=== PATIENT | female | born 1960 | race Caucasian/White ===

== ENCOUNTER → 2018-06-20 | Outpatient (CLI) | payer BC ==
--- NOTE | 2018-06-21 04:09 | CONS ---
CONSULTATION REASON FOR CONSULTATION: Sleep apnea. This is a 58-year-old female patient who was diagnosed to have obstructive sleep apnea; the diagnosis was established 6 or 7 years ago through [facility]. The patient has a CPAP unit which is set at a pressure of 10 cm of water. She is using a Simplus full-face mask. On today's evaluation she is coming in to establish herself today in our office. I checked the compliance data. The patient has been averaging around 5.4 hours of CPAP use per night. Her CPAP use is exceeding 95%. At times she feels congested because of her CPAP unit; she has an older generation ResMed S9 series. No recent weight gain. She goes to bed around 11 p.m., wakes up at 5 in the morning. No snoring while on the CPAP unit. No significant leaks around the mask. No restlessness in the lower extremities. No sleepwalking or sleeptalking. No significant hypersomnia or sleepiness. Palestine score is 11 for now. She does not take any naps during the day. She sleeps on her side. She drinks coffee in moderate amounts. She has lost weight significantly. She used to weight 247 pounds more than 10 years ago, and currently she is down to 193. PAST MEDICAL HISTORY: 1. Obstructive sleep apnea. Currently on CPAP; details discussed above. 2. Diabetes mellitus. 3. History of breast cancer with previous lumpectomy and currently on tamoxifen. 4. Hyperlipidemia. 5. Hypothyroidism. 6. History of tachycardia, sinus. DRUG ALLERGIES: PENICILLIN. OUTPATIENT MEDICATIONS: Outpatient medications include: 1. Singulair 10 mg p.o. daily. 2. Metformin 500 mg twice a day. 3. Actos 30 mg p.o. daily. 4. Tamoxifen 20 mg p.o. daily. 5. Lipitor 10 mg p.o. daily. 6. Cardizem 120 mg p.o. daily. 7. Synthroid 50 mcg p.o. daily. SURGICAL HISTORY: 1. Mastectomy on the right breast. 2. Cholecystectomy. 3. Insertion and removal of a port for chemotherapy. 4. Tubal ligation. SOCIAL HISTORY: Ex-smoker. Quit smoking in 2001. No history of alcoholism. No history of IV drugs. FAMILY HISTORY: Negative for sleep apnea or any other form of sleep breathing disorder. REVIEW OF SYSTEMS: Fourteen-point review of systems was done. Positive findings were all mentioned above in the history of present illness. PHYSICAL EXAMINATION: BP is 121/71, pulse 56, respirations 16, temperature 98.4, saturation 92% on room air. Height is 5 feet 5 inches, weight 193, BMI 31.6. Palestine score 11. Neck size 14-2/3 inches. GENERAL APPEARANCE: Calm, comfortable. Head is atraumatic, normocephalic. NECK: Supple. No JVD. No goiter or neck masses. Mallampati class IV. LUNGS: Clear to auscultation. HEART: Heart sounds are regular rate and rhythm. Normal S1, S2. No S3, S4. No murmurs. ABDOMEN: Soft, nontender. No organomegaly. EXTREMITIES: No edema. No cyanosis or clubbing. Neurologically she is alert and oriented x3. No focal neurological deficit. PSYCHIATRIC: Negative for anxiety or depression. Skin is negative for any wounds or ulceration. IMPRESSION: 1. Symptomatic obstructive sleep apnea, currently on CPAP with a pressure of 10. 2. Obesity with interval weight loss. Current BMI is down to 31.6. 3. History of breast cancer. 4. Diabetes mellitus, type 2. 5. Hypothyroidism. PLAN: I checked the patient's CPAP unit. She has a functional ResMed S9 series. I dropped the humidity down to 2. I offered her heated tubing. We also had a lengthy discussion about her mask interface. I think she would be better off with a different mask, and I offered her a DreamWear [id number] full-face mask, small size. The patient will be getting back to me and decide if this is the type of mask that she would like to use in the future. Alternatively she can use her Simplus mask. Dropped down the RAMP time on her CPAP unit to 10 cm. She is compliant. She is benefitting from treatment. No need for any further adjustments. See me back in a year's time, earlier if needed. MMODL / IJN: [id number] /
== END | disposition home or self-care (01) ==
LOC: SLEEP 14:32
PROVIDERS: ATTEND Internal Medicine Critical Care Medicine
DX: G47.33 Obstructive sleep apnea (adult) (pediatric) (principal); E66.9 Obesity, unspecified; E11.9 Type 2 diabetes mellitus without complications; E03.9 Hypothyroidism, unspecified; E78.5 Hyperlipidemia, unspecified; Z99.89 Dependence on other enabling machines and devices; Z79.899 Other long term (current) drug therapy; Z88.0 Allergy status to penicillin; Z90.11 Acquired absence of right breast and nipple; Z90.49 Acquired absence of other specified parts of digestive tract; Z79.84 Long term (current) use of oral hypoglycemic drugs; Z98.51 Tubal ligation status; Z85.3 Personal history of malignant neoplasm of breast; Z87.891 Personal history of nicotine dependence; Z68.31 Body mass index [BMI] 31.0-31.9, adult
CPT/HCPCS: 99211

== ENCOUNTER → 2019-09-24 | Outpatient (CLI) | payer BC ==
--- NOTE | 2019-09-24 19:51 | US ---
EXAMINATION TYPE: US thyroid st tissue head/neck DATE OF EXAM: 09/24/2019 COMPARISON: NONE CLINICAL HISTORY: 59-year-old female E03.9 hypothyroidism. Difficulty swallowing, has had 2 episodes of chicken stuck in throat. Been on Synthroid for 10+ yrs TECHNIQUE: Multiple sonographic images of the thyroid gland are obtained. FINDINGS: GLAND SIZE: Right Lobe: 2.5 x 1.0 x 1.1cm Overall Parenchyma: heterogenous Left Lobe: 4.6 x 1.2 x 1.7 cm Overall Parenchyma: heterogeneous Isthmus Thickness: 0.2 cm NODULES RIGHT: # of nodules measured on right: 0 LEFT: # of nodules measured on left: 0 ISTHMUS: # of nodules measured in the isthmus: 0 Bilateral neck scanned, no evidence of lymphadenopathy. Patient has superficial lump under left mandible where a 0.7 x 0.6 x 0.5cm round cystic structure jus t below the skin layer. IMPRESSION: 1. Heterogeneous parenchyma may relate to chronic hyperthyroidism. No discrete nodule. 2. Targeted scanning under the left mandible at the patient's palpable site shows a 7 mm cyst just de ep to the skin, probable sebaceous cyst or epidermal inclusion cyst. Clinical follow-up recommended. If symptomatic, consider surgical excision.
== END | disposition home or self-care (01) ==
LOC: RADUSWWP 08:48
PROVIDERS: ATTEND Family Medicine
DX: E04.1 Nontoxic single thyroid nodule (principal)
CPT/HCPCS: 76536

== ENCOUNTER 2019-10-03 06:55 | Day surgery (SDC) | payer BC ==
[2019-10-01 15:16] VITALS: BMI 32.3
[~2019-10-03 06:55] MED LIST: LACTATED RINGERS 1,000 ML IV SCH; LIDOCAINE 1% (10MG/ML) FOR IV START INTRADERMA PRN
[2019-10-03 07:17] VITALS: TEMP 98
[2019-10-03] MEDS ORDERED: LIDOCAINE 1% (10MG/ML) FOR IV START SQ ONE (07:28)
[2019-10-03 07:29] LABS: Glucose,Whole Blood 176 mg/dL (75-99)
[2019-10-03] MEDS ORDERED: PROPOFOL 10 MG/ML 20 ML VIAL IV ONE (07:30)
[2019-10-03] MEDS ORDERED: LIDOCAINE 1% INJ 10MG/ML (20 ML MDV) ONE (07:30)
--- NOTE | 2019-10-03 07:51 | P.PCN ---
Date of Procedure: 10/03/19 Procedure(s) Performed: BRIEF HISTORY: Patient is a 59-year-old, pleasant, white female scheduled for an upper endoscopy as a part of evaluation of intermittent dysphagia to solids for the last several weeks duration. He is referred infection that happened twice in the last 1 month Of chicken that was lodged and subsequently went to the emergency room and it spontaneously resolved. She is hence scheduled for an upper endoscopy as a possible dilation today.. PROCEDURE PERFORMED: Esophagogastroduodenoscopy with biopsy and dilation. PREOPERATIVE DIAGNOSIS: Intermittent dysphagia to some the last 6 weeks duration with 2 episodes of food impaction. IV sedation per anesthesia. PROCEDURE: After informed consent was obtained, the patient was brought into the endoscopy unit. IV sedation was administered by Anesthesia under continuous monitoring. Initially the Olympus GIF-140 video endoscope was inserted into the mouth. Esophagus intubated without any difficulty. It was gradually advanced into the stomach and duodenum and carefully examined. The bulb and the second part of the duodenum appeared normal. The scope at this time was withdrawn to the stomach, adequately insufflated with air, and upon careful examination, mucosa of the antrum, body, cardia and the fundus appeared normal. The scope was then withdrawn into the esophagus. Small sliding type hiatal hernia noted. There was a widely patent distal esophageal Schatzki's ring identified proximal to the GE junction which was dilated using 15-18 mm TTS balloon in a sequential fashion for 90 seconds. The GE junction was located at 39 cm from the incisors. The mucosa of the distal esophagus had thickened esophageal folds with longitudinal ridges, furrows and the patient mucosal rings SUSPICIOUS for eosinophilic esophagitis and multiple biopsies were done from this area. The rest of esophagus appeared normal and the patient tolerated the procedure well. IMPRESSION: 1.. Distal Esophageal Schatzki's ring status post balloon dilation using 15-18 mm TTS balloon as described above. 2. Thickened distal esophageal folds with mucosal rings, longitudinal ridges and follows suspicious for eosinophilic esophagitis is post multiple biopsies. RECOMMENDATIONS: The findings of this examination were discussed with the patient as well as her family. She was advised to follow with the biopsy results. She'll remain on a clear liquid diet for lunch today. She will be seen in office in 2 weeks..
[2019-10-03 08:15] VITALS: BP 104/62; PULSE 66; RESP 18
== END 2019-10-03 08:40 | disposition home or self-care (01) ==
LOC: ORWHC2ENDO 06:55
PROVIDERS: ATTEND Internal Medicine Gastroenterology
DX: K22.2 Esophageal obstruction (principal); K20.9 Esophagitis, unspecified; K44.9 Diaphragmatic hernia without obstruction or gangrene; E78.5 Hyperlipidemia, unspecified; J45.909 Unspecified asthma, uncomplicated; G47.33 Obstructive sleep apnea (adult) (pediatric); E11.9 Type 2 diabetes mellitus without complications; E07.9 Disorder of thyroid, unspecified; Z79.890 Hormone replacement therapy; Z79.84 Long term (current) use of oral hypoglycemic drugs; Z79.899 Other long term (current) drug therapy; Z90.10 Acquired absence of unspecified breast and nipple; Z85.3 Personal history of malignant neoplasm of breast; Z92.21 Personal history of antineoplastic chemotherapy; Z92.3 Personal history of irradiation; Z98.890 Other specified postprocedural states; Z98.51 Tubal ligation status; Z88.0 Allergy status to penicillin; Z99.89 Dependence on other enabling machines and devices
CPT/HCPCS: 88305; 88312; 43239; 43249; J2001; J2704; C1726

== ENCOUNTER → 2020-10-06 | Outpatient (CLI) | payer BC ==
--- NOTE | 2020-10-06 16:01 | XR ---
EXAMINATION TYPE: XR chest 2V DATE OF EXAM: 10/06/2020 COMPARISON: NONE HISTORY: Wheezing, asthma TECHNIQUE: Frontal and lateral views of the chest are obtained. FINDINGS: Prominence of the pulmonary artery could be indicative of pulmonary artery hypertension. Chapman rgical clips are present in the right axilla. Suspect right mastectomy change. Abnormal density seen along the region of the right middle lobe. There is volume loss in the right hemithorax. There is no pleural effusion or pneumothorax seen. The cardiac silhouette size is within normal limits. Bronchi al wall thickening is present. The osseous structures are intact. IMPRESSION: Correlate for right middle lobe pneumonia, follow-up to resolution to exclude an underly ing mass a consider chest CT as indicated. Postop changes.
== END | disposition home or self-care (01) ==
LOC: RADXRYALE 14:45
PROVIDERS: ATTEND Physician Assistant Medical
DX: R06.2 Wheezing (principal)
CPT/HCPCS: 71046

== ENCOUNTER → 2020-10-10 | Outpatient (CLI) | payer BC ==
[2020-10-10 14:08] LABS: African American GFR (CKD) >90 (>60 ml/min/1.73 sqM); Blood Urea Nitrogen 14 mg/dL (7-17); Non-African American GFR(CKD) 87 (>60 ml/min/1.73 sqM)
--- NOTE | 2020-10-10 15:34 | CT ---
EXAMINATION TYPE: CT chest w con DATE OF EXAM: 10/10/2020 COMPARISON: Chest x-ray 10/06/2020 HISTORY: Abnormal chest x-ray CT DLP: 461 mGycm Automated exposure control for dose reduction was used. CONTRAST: CT scan of the chest is performed with IV Contrast, patient injected with 100 mL of Isovue 300. FINDINGS: LUNGS: There is right hilar mass measuring 4.9 x 2.7 x 3.7 cm. There is narrowing of the right middle lobe bronchus with resultant postobstructive volume loss in pneumonia. There is a pulmonary nodule r ight infrahilar region measuring 1.4 cm. No additional nodules or masses are identified. MEDIASTINUM: There is conglomerate mass within the subcarinal region extending into the azygos esopha geal region measuring approximately 5.7 x 4.1 cm. There is paratracheal adenopathy on the left measur ing 1.5 cm and on the right measuring approximately 1.8 cm. High right paratracheal adenopathy measur es 1.1 cm. Thoracic aorta is of normal caliber. The heart is not enlarged. UPPER ABDOMEN: No significant abnormality appreciated. OTHER: No additional significant abnormality is seen. IMPRESSION: 1. Right hilar mass as discussed above with post obstructive volume loss and pneumonia. Mediastinal a denopathy. Correlate with PET/CT and/or bronchoscopy. The findings are felt to reflect malignancy unt il proven otherwise.
== END | disposition home or self-care (01) ==
LOC: RADCTMAIN 13:23
PROVIDERS: ATTEND Family Medicine
DX: J18.9 Pneumonia, unspecified organism (principal); R91.8 Other nonspecific abnormal finding of lung field; R59.0 Localized enlarged lymph nodes
CPT/HCPCS: 82565; 84520; 71260; 36415; Q9967

== ENCOUNTER → 2020-10-17 | Outpatient (CLI) | payer BC ==
--- NOTE | 2020-10-17 15:13 | XR ---
EXAMINATION TYPE: XR chest 2V DATE OF EXAM: 10/17/2020 COMPARISON: 10/06/2020 TECHNIQUE: PA and lateral views submitted. HISTORY: Breast cancer with wheezing FINDINGS: I for inflation lungs with a suggestion of volume loss on the right. Surgical clips overlying the rig ht chest. Heart size stable. Underlying COPD suspected. Apical pleural thickening with no overt failu re. Stable subsegmental changes involving the right lung unchanged from prior exam. There is persiste nt right hilar soft tissue prominence. Hypertrophic and degenerative changes of the spine. Surgical c lips in the upper abdomen noted. IMPRESSION: 1. Right hilar soft tissue fullness correlate for mass with adenopathy. Postobstructive atelectasis v ersus developing pneumonia right middle lobe..
== END | disposition home or self-care (01) ==
LOC: RADXRYALE 14:56
PROVIDERS: ATTEND Physician Assistant Medical
DX: C50.919 Malignant neoplasm of unspecified site of unspecified female breast (principal); R06.2 Wheezing
CPT/HCPCS: 71046

== ENCOUNTER 2020-10-22 10:36 | Day surgery (SDC) | payer BC ==
[2020-10-21 13:06] VITALS: BMI 29.3
[~2020-10-22 10:36] MED LIST changes: +ALBUTEROL NEB (CONC) 2.5 MG/0.5 ML INHALATION ONE; -LIDOCAINE 1% (10MG/ML) FOR IV START INTRADERMA PRN; +LIDOCAINE 2% (PF) 20 MG/ML 5 ML VIAL INHALATION ONE; +LIDOCAINE VISCOUS 300 MG/15 ML CUP MUCOUS MEM ONE
[2020-10-22] MEDS ORDERED: LIDOCAINE 1% (10MG/ML) FOR IV START INTRADERMA ONE (11:27)
[2020-10-22 11:39] LABS: Glucose,Whole Blood 117 mg/dL (75-99)
[2020-10-22] MEDS ORDERED: SUCCINYLCHOLINE CHLORIDE 100 MG/5 ML SYR IV ONE (11:56)
[2020-10-22] MEDS ORDERED: fentaNYL (PF) 50 MCG/ML 2 ML AMP ONE (11:56)
[2020-10-22] MEDS ORDERED: ROCURONIUM 10 MG/ML (5 ML VIAL) IV ONE (11:56)
[2020-10-22] MEDS ORDERED: PROPOFOL 10 MG/ML 20 ML VIAL IV ONE ×2 (11:56)
[2020-10-22] MEDS ORDERED: ONDANSETRON 4 MG/2 ML VIAL ONE (11:56)
[2020-10-22] MEDS ORDERED: NEOSTIGMINE 1 MG/ML 10 ML VIAL ONE (11:56)
[2020-10-22] MEDS ORDERED: LIDOCAINE 1% INJ 10MG/ML (20 ML MDV) ONE (11:56)
[2020-10-22] MEDS ORDERED: GLYCOPYRROLATE 0.2 MG/ML 2 ML VIAL ONE (11:56)
[2020-10-22 13:43] VITALS: TEMP 97.1
[2020-10-22 13:51] LABS: Glucose,Whole Blood 110 mg/dL (75-99)
[2020-10-22 14:14] VITALS: RESP 18
[2020-10-22 14:32] VITALS: BP 102/51; PULSE 49
--- NOTE | 2020-10-22 14:38 | XR ---
EXAMINATION TYPE: XR chest 1V portable DATE OF EXAM: 10/22/2020 COMPARISON: 10/17/2020 HISTORY: Post right middle lobe biopsies TECHNIQUE: Single frontal view of the chest is obtained. FINDINGS: There is a 2.8 cm right hilar mass. Right apical pleural thickening. Right-sided consolida tion with small effusion. Surgical clips in the axilla. Heart size normal. Coarsened interstitium. Ar thropathy of the shoulders. Hyperinflation suggests COPD. IMPRESSION: 1. No sizable pneumothorax. Right-sided consolidation and small pleural effusion. Right hilar mass ag ain noted measuring approximately 2.8 cm. 2. Interstitial increased markings can be associated with chronic interstitial lung disease or pneumo nitis. Correlate clinically.
--- NOTE | 2020-10-22 17:14 | P.PCN ---
Date of Procedure: 10/22/20 Operative Findings: Preoperative Diagnosis: Right hilar mass, mediastinal lymphadenopathy Postoperative Diagnosis: Right hilar mass, mediastinal lymphadenopathy Significant narrowing of the right middle lobe bronchus with extrinsic compression an endobronchial tumor resulting into RML atelectasis. Procedure(s) Performed: 1 Navigational bronchoscopy 2 transbronchial biopsy of the RML endobronchial mass 3 transbronchial brushing of the RML endobronchial mass 4 bronchial lavage of the right middle lobe 6 EBUS guided transbronchial needle aspirate of the station 7 subcarinal and 4R lymph node . Anesthesia: ROSALINOA Surgeon: Rut Chavis [employer] Draftsman #1:Luz Elena Laboy Estimated Blood Loss (ml): 0 Pathology: other Condition: stable Disposition: same day Operative Findings: Indication: Right middle lobe mass This procedure was done under general anesthesia. The patient was brought into the endoscopy suite. The patient was intubated by OPTICAL INSTRUMENT REPAIRER. The patient had a 8 ET tube placed and she was secured in place. Following that, flexible bronchoscope was introduced through the orotracheal tube and an airway inspection was done. The visualized airways included the mid and the distal trachea, bilateral mainstem bronchi, right upper lobe bronchus, bronchus intermedius, right middle lobe and right lower lobe bronchus and the various 10 segments on the right. There was significant abnormalities noted that the orifice of the right liver lobe. Right hilar mass was invading the right middle lobe bronchus causing significant narrowing that the orifice with endobronchial irregularities and a verifiable irregular tumor- Bro appearing surface circumferentially narrowing the right middle lobe bronchus. I was able to pursue bronchoscope through the right middle lobe bronchus into the lateral and medial segment. The bronchoscope was moved to the left and the visualized airways included the left mainstem bronchus, left upper lobe bronchus and left lower lobe bronchus and the various 8 segments on the left. There was evidence of endobronchial irregularities with essentially noted in the right middle lobe bronchus. The bronchoscope was then taken to the right middle lobe and under direct visualization, endobronchial and transbronchial biopsies of the middle lobe mucosal irregularities was biopsied . Following that, endobronchial tumors of the right middle lobe bronchus was done. Following that, a bronchiolitis right middle lobe was done with a total of 80 mL of fluid was infused and 25 mL of aspirate was obtained. Aspirate was bloody. Therapeutic airway suctioning was done. Bronchoscope was removed. Subsequent to that, the endobronchial ultrasound bronchoscopy was introduced.The EBUS was used and the lymph nodes were examined. Direct measurement of the mediastinal lymph nodes revealed at the level of 4R and station 7 lymph nodes. The rest of the stations were all examined and no visible lymph nodes were identified. As such no further measurements were done. I performed transbronchial needle aspirate of station 7 and a total of 5 passes were taken. I also performed transbronchial needle aspirate of the station 4R lymph node, total of 3 passes were taken. I used a 22-gauge VIZISHOT needles.. No major bleeding and the scope was removed and taken out . Patient was extubated and transferred to recovery in stable condition. Chest x-rays to follow to rule out any complications or pneumothorax.
== END 2020-10-22 15:11 | disposition home or self-care (01) ==
LOC: ORWHC2ENDO 10:36
PROVIDERS: ATTEND Internal Medicine Critical Care Medicine
DX: C34.01 Malignant neoplasm of right main bronchus (principal); J44.9 Chronic obstructive pulmonary disease, unspecified; G47.33 Obstructive sleep apnea (adult) (pediatric); Z79.899 Other long term (current) drug therapy; C50.919 Malignant neoplasm of unspecified site of unspecified female breast; E78.2 Mixed hyperlipidemia; E03.9 Hypothyroidism, unspecified; E11.9 Type 2 diabetes mellitus without complications; J30.9 Allergic rhinitis, unspecified; I10 Essential (primary) hypertension; E61.1 Iron deficiency; Z88.0 Allergy status to penicillin; Z79.84 Long term (current) use of oral hypoglycemic drugs; Z87.891 Personal history of nicotine dependence
CPT/HCPCS: 87798 ×3; 87496; 87498; 87529; 88104; 88108; 88305; 88173; 88342; 87252; 87502; 87634; 88341; 87070; 87205; 87075; 87116; 87102; 87206; 71045; 31625; 31623; 31624; 31652; J2710; J2405; J2001; J3010; J0330; J2704

== ENCOUNTER → 2021-02-05 | Outpatient (CLI) | payer BC ==
--- NOTE | 2021-02-05 12:50 | CT ---
EXAMINATION TYPE: CT abdomen pelvis wo/w con DATE OF EXAM: 02/05/2021 COMPARISON: None HISTORY: Adnexal mass CT DLP: 2270 mGycm CONTRAST: CT scan of the abdomen and pelvis is performed with Oral Contrast and without and with IV Contrast, p atient injected with 100 ml mL of Isovue 300. FINDINGS: LUNG BASES-: Atelectasis or infiltrate right lower lobe. Nodular component within the periphery of th e area of abnormal attenuation. CT of the chest is recommended. Adjacent to the esophagus there is 3. 3 cm septated mass which may reflect adenopathy. LIVER/GB: Cholecystectomy clips are in place. No space occupying hepatic lesion. Biliary tree is o f normal caliber. PANCREAS: No inflammation. No distinct mass. SPLEEN: No splenic enlargement. No lesion seen. ADRENALS: Nonspecific nodular thickening left adrenal gland measures 1.6 cm. KIDNEYS/BLADDER: No hydronephrosis. No nephrolithiasis. No distinct renal mass. Urinary bladder g rossly unremarkable. BOWEL: Normal appendix. Normal bowel caliber. No inflammation. GENITAL ORGANS: Lobulated predominantly solid and partially cystic mass left ovary measures 6.9 x 5. 1 cm. Neoplasm is suspected. The right ovary and uterus appear unremarkable. LYMPH NODES: No greater than 1cm abdominal or pelvic lymph nodes are appreciated. AORTA: No significant abnormality. OSSEOUS STRUCTURES: No significant abnormality is seen. OTHER: No significant additional abnormality is seen. IMPRESSION: 1. Lobulated predominantly solid and partially cystic mass left ovary measures 6.9 x 5.1 cm. Neoplasm is suspected. 2. Infiltrate or atelectasis with peripheral nodularity. CT of the chest is recommended to exclude ne oplasm.
== END | disposition home or self-care (01) ==
LOC: RADCTMAIN 09:29
PROVIDERS: ATTEND Obstetrics & Gynecology
DX: N83.8 Other noninflammatory disorders of ovary, fallopian tube and broad ligament (principal)
CPT/HCPCS: 74178; Q9967

== ENCOUNTER → 2021-02-09 | Outpatient (CLI) | payer BC | END | disposition home or self-care (01) | LOC: LABWHC1 12:13 | PROVIDERS: ATTEND Obstetrics & Gynecology | DX: Z01.818 Encounter for other preprocedural examination (principal); Z20.822 Contact with and (suspected) exposure to COVID-19 | CPT/HCPCS: U0003; U0005 ==

== ENCOUNTER → 2021-02-16 | Outpatient (CLI) | payer BC | END | disposition home or self-care (01) | LOC: LABWHC1 15:37 | PROVIDERS: ATTEND Obstetrics & Gynecology | DX: Z01.812 Encounter for preprocedural laboratory examination (principal); Z20.822 Contact with and (suspected) exposure to COVID-19 | CPT/HCPCS: U0003; C9803 ==

== ENCOUNTER → 2021-04-07 | Outpatient (CLI) | payer BC ==
--- NOTE | 2021-04-16 10:45 | HM ---
HOLTER MONITOR REPORT The patient basically reported activities and had 1 episode of shortness of breath. Predominant rhythm appears to be sinus with a heart rate ranging from 64 to 140 beats per minute with average heart rate of 85 beats per minute. Sinus rhythm and sinus tachycardia were noted. When the patient complained of shortness of breath going up stairs she was in a sinus rhythm with isolated PACs, rate of about 120 beats per minute. Overall no Tra arrhythmias were noted. FINAL IMPRESSION: No significant symptoms reported except 1 episode of shortness of breath. Predominant rhythm appears to be sinus and sinus tachycardia. Rare isolated PACs and PVCs were noted. At the time patient had shortness of breath, she was in a sinus tachycardia at 120 beats per minute. MMODL / IJN: [id number] /
== END | disposition home or self-care (01) ==
LOC: RADECHMAIN 11:32
PROVIDERS: ATTEND Family Medicine
DX: I49.3 Ventricular premature depolarization (principal); I49.1 Atrial premature depolarization
CPT/HCPCS: 93225; 93226

== ENCOUNTER 2021-04-29 06:16 | Day surgery (SDC) | payer BC ==
[2021-04-24 17:16] VITALS: BMI 33.1
[~2021-04-29 06:16] MED LIST changes: -ALBUTEROL NEB (CONC) 2.5 MG/0.5 ML INHALATION ONE; +LIDOCAINE 1% (10MG/ML) FOR IV START INTRADERMA PRN; -LIDOCAINE 2% (PF) 20 MG/ML 5 ML VIAL INHALATION ONE; -LIDOCAINE VISCOUS 300 MG/15 ML CUP MUCOUS MEM ONE
[2021-04-29] MEDS ORDERED: LACTATED RINGERS 1,000 ML IV ONE (06:50)
[2021-04-29] MEDS: LACTATED RINGERS 1,000 ML IV ONE ×2 (06:50→07:30)
[2021-04-29 06:54] VITALS: TEMP 97.4
[2021-04-29 06:59] LABS: Glucose,Whole Blood 159 mg/dL (75-99)
[2021-04-29] MEDS ORDERED: PROPOFOL 10 MG/ML 20 ML VIAL IV ONE (07:06)
--- NOTE | 2021-04-29 07:27 | P.PCN ---
Date of Procedure: 04/29/21 Procedure(s) Performed: Brief history: Patient is a pleasant 61-year-old white female scheduled for an elective upper endoscopy as well as colonoscopy as a part of evaluation of GERD/iron deficiency anemia and strong family history of colon cancer. Procedure performed: Esophagogastroduodenoscopy with biopsy Colonoscopy Preoperative diagnosis: GERD/iton deficiency anemia Family history of colon cancer Anesthesia: MAC Procedure: After informed consent was obtained from the patient was brought into the endoscopy unit and IV sedation was administered by anesthesia under continuous monitoring. Initially upper endoscopy was done. The Olympus GF 160 video endoscope was inserted inserted into the mouth and esophagus intubated without any difficulty and was gradually advanced into the stomach and duodenum and carefully examined. The bulb and second part of the duodenum appeared normal. The scope was then withdrawn into the stomach adequately insufflated with air and upon careful examination the antrum had mild gastritis and biopsies were done. The body, cardia and fundus appeared normal. The scope was then withdrawn into the esophagus. The GE junction was located at 40 cm to the incisors. It appeared regular with no erythema erosions or ulcerations. Rest of the esophagus appeared normal. The proximal cervical esophagus there whitish plaques noted consistent with possible Linette esophagitis and biopsies were done from this area. Patient tolerated the procedure well. At this time the patient continued to remain sedation. Initial digital rectal examination was normal. Olympus CF 160 video colonoscope was then inserted into the rectum and gradually advanced to the cecum without any difficulty. Careful examination was performed as the scope was gradually being withdrawn. The prep was excellent. The cecum, ascending colon, transverse colon, descending colon, sigmoid colon and rectum appeared normal. Retroflexion was performed in the rectum and no lesions were noted. Patient tolerated the procedure well. Impression: 1. Upper endoscopy revealed antral gastritis and whitish plaques in the proximal esophagus rule out Linette esophagitis 2. Colonoscopys within normal limits with no evidence of colorectal neoplasia Recommendations: Findings of this examination were discussed with the patient as well as her family. She was advised to follow with the biopsy results. Recommend repeat colonoscopy in 5 years because of strong family history of colon cancer.
[2021-04-29 07:51] VITALS: BP 146/77; PULSE 73; RESP 16
== END 2021-04-29 08:29 | disposition home or self-care (01) ==
LOC: ORWHC2ENDO 06:16
PROVIDERS: ATTEND Internal Medicine Gastroenterology
DX: K21.00 Gastro-esophageal reflux disease with esophagitis, without bleeding (principal); K29.50 Unspecified chronic gastritis without bleeding; D50.9 Iron deficiency anemia, unspecified; Z12.11 Encounter for screening for malignant neoplasm of colon; Z80.0 Family history of malignant neoplasm of digestive organs; E11.9 Type 2 diabetes mellitus without complications; R00.0 Tachycardia, unspecified; E78.5 Hyperlipidemia, unspecified; G47.33 Obstructive sleep apnea (adult) (pediatric); E07.9 Disorder of thyroid, unspecified; Z85.3 Personal history of malignant neoplasm of breast; Z79.84 Long term (current) use of oral hypoglycemic drugs; Z79.890 Hormone replacement therapy; Z79.899 Other long term (current) drug therapy; Z98.890 Other specified postprocedural states; Z90.49 Acquired absence of other specified parts of digestive tract; Z98.51 Tubal ligation status; Z97.2 Presence of dental prosthetic device (complete) (partial)
CPT/HCPCS: 88305; 43239; J2704; G0105

== ENCOUNTER → 2021-05-25 | Outpatient (CLI) | payer BC ==
--- NOTE | 2021-05-26 14:44 | MM ---
Reason for exam: screening (asymptomatic). Last mammogram was performed 1 year and 1 month ago. History: Patient is postmenopausal, has history of breast cancer at age 48, and history of other cancer. Chemotherapy, 2009. Radiation therapy of the right breast, 2009. Mastectomy of the right breast. Physical Findings: A clinical breast exam by your physician is recommended on an annual basis and results should be correlated with mammographic findings. MG Screen Shayna Unilateral W/Cad CC and MLO view(s) were taken of the left breast. Prior study comparison: April 21, 2020, mammogram, performed at [facility]. April 09, 2020, mammogram, performed at [facility]. February 27, 2019, mammogram, performed at [facility]. February 23, 2018, mammogram, performed at [facility]. There are scattered fibroglandular densities. No significant changes when compared with prior studies. ASSESSMENT: Benign, BI-RAD 2 RECOMMENDATION: Routine screening mammogram of the left breast in 1 year.
== END | disposition home or self-care (01) ==
LOC: RADMAMWWP 15:03
PROVIDERS: ATTEND Family Medicine
DX: Z12.31 Encounter for screening mammogram for malignant neoplasm of breast (principal); Z78.0 Asymptomatic menopausal state; Z85.3 Personal history of malignant neoplasm of breast
CPT/HCPCS: 77067

== ENCOUNTER → 2021-08-18 | Outpatient (CLI) | payer BC ==
--- NOTE | 2021-08-18 16:10 | P.SLEEP ---
History of Present Illness H&P Date: 08/18/21 This is a very pleasant 61-year-old female patient who is coming in to see me regarding her obstructive sleep apnea. I've seen this patient back in the sleep center in 2019. At that time, the patient came to establish herself regarding her obstructive sleep apnea with me. Her original study was done at [facility] and the patient was using a older generation ResMed S 9 and that was set at a pressure of 10 cm of water. The patient was also using his Simplus fullface mask and she was very compliant. Her machine broke. Currently she is not receiving any treatment. She is very much symptomatic history 1. the patient has loud snoring. The patient has witnessed apneas. The patient has been quitting breathing in the middle of the night. She is waking up not refreshed. She is going to bed at around 11 PM, waking up examination morning. She feels tired and fatigued. She takes naps. She drinks 2 cups of coffee in the morning. I have diagnosed this patient also with metastatic breast cancer. She had a lung biopsy to confirm the diagnosis. She is receiving hormonal treatment. Her weight is down 192 pounds. No restlessness in the lower extremities. No other new complaints otherwise for now. Past medical history includes obstructive sleep apnea, diabetes mellitus, breast cancer with previous lumpectomy and the patient disease and metastatic at this point in time, hypothyroidism, hyperlipidemia Past surgical history is positive for mastectomy on the right breast, tubal ligation, cholecystectomy, insertion of a Mediport with subsequent removal, bronchoscopy Social history the patient is an ex-smoker she quit smoking 2001 and substance abuse or alcoholism. Review of Systems Constitutional: Reports daytime sleepiness, Reports fatigue, Reports weight loss Eyes: denies as per HPI, denies blurred vision, denies bulging eye, denies decreased vision, denies diplopia, denies discharge, denies dry eye, denies irritation, denies itching, denies pain, denies photophobia, denies loss of per ipheral vision, denies loss of vision, denies tunnel vision/blind spots Ears: deny: decreased hearing, ear discharge, earache, tinnitus Ears, nose, mouth and throat: Reports as per HPI Breasts: absent: as per HPI, change in shape, gynecomastia, masses, nipple discharge, pain, skin changes, swelling Cardiovascular: Reports as per HPI Respiratory: Reports sleep apnea Gastrointestinal: Reports as per HPI Genitourinary: Reports as per HPI Menstruation: Reports as per HPI Musculoskeletal: Reports as per HPI, Reports arm numbness/tingling Musculoskeletal: absent: ankle pain, ankle stiffness, ankle swelling Integumentary: Reports as per HPI Neurological: Reports as per HPI Psychiatric: Reports as per HPI Endocrine: Reports as per HPI, Reports fatigue Hematologic/Lymphatic: Reports as per HPI Allergic/Immunologic: Reports as per HPI Past Medical History Past Medical History: Asthma, Cancer, Diabetes Mellitus, Hyperlipidemia, Sleep Apnea/CPAP/BIPAP, Thyroid Disorder Additional Past Medical History / Comment(s): hx dysphagia, "found webbing, had dilation," breast cancer 2009 w/ surgery /chemo/radiation, SOB w/ exertion - "breast cancer tumor in lung," hx "low iron level" w/ iron infusions, uses CPAP. Recent holter monitor for "heart racing" episode - was nl. c/o sl mild cold w/ runny nose History of Any Multi-Drug Resistant Organisms: None Reported Past Surgical History: Breast Surgery, Cholecystectomy, Tubal Ligation Additional Past Surgical History / Comment(s): mastectomy right breast, colonoscopy, EGD, port inserted/later removed, Navigational Bronchoscopy 2020. 02/19/21 oophorectomy & salpingectomy Past Anesthesia/Blood Transfusion Reactions: No Reported Reaction Smoking Status: Former smoker Past Alcohol Use History: None Reported Past Drug Use History: None Reported - Past Family History Father Family Medical History: Cancer Additional Family Medical History / Comment(s): (Paternal Grandparents - Colon cancer) Mother Family Medical History: Cancer Additional Family Medical History / Comment(s): lymphoma, cancer in back, liver/lung cancers Brother(s) Family Medical History: Cancer Additional Family Medical History / Comment(s): lung cancer Medications and Allergies Home Medications Medication Instructions Recorded Confirmed Type Atorvastatin [Lipitor] 10 mg PO HS 10/01/19 04/29/21 History Levothyroxine Sodium [Synthroid] 50 mcg PO DAILY 10/01/19 04/29/21 History Montelukast [Singulair] 10 mg PO HS 10/01/19 04/29/21 History Pioglitazone [Actos] 30 mg PO DAILY 10/01/19 04/29/21 History dilTIAZem HCL [Diltiazem HCl 24Hr 120 mg PO DAILY@1700 10/01/19 04/29/21 History ER] metFORMIN HCL [Glucophage] 1,000 mg PO BID 10/01/19 04/29/21 History Fluticasone Propion/Salmeterol 1 inhalation PO BID 10/21/20 04/29/21 History [Wixela 250-50 Inhub] Omeprazole [PriLOSEC] 40 mg PO DAILY 10/21/20 04/29/21 History Albuterol Sulfate [Proair 1 puff INHALATION Q6H PRN 04/24/21 04/29/21 History Respiclick] Anastrozole [Arimidex] 1 mg PO DAILY@1800 04/24/21 04/29/21 History Palbociclib [Ibrance] 125 mg PO DIRECTED 04/24/21 04/29/21 History Allergies Allergy/AdvReac Type Severity Reaction Status Date / Time Penicillins Allergy tongue Verified 04/29/21 06:39 swelling, itching Physical Exam BP is 109/68 with a pulse of 58 and a respiration of 16 and temperature 96.5. Oxygenation 95% on room air oxygen. Body mass index of 32. Sims scores at 5. And the neck size 14-1/2. The patient appeared well nourished and normally developed. Vital signs as documented. Head exam is unremarkable. No scleral icterus or corneal arcus noted. Neck is without jugular venous distension, thyromegaly, or carotid bruits. Carotid upstrokes are brisk bilaterally. Lungs are clear to auscultation and percussion. Cardiac exam reveals the PMI to be normally sized and situated. Rhythm is regular. First and second heart sounds normal. No murmurs, rubs or gallops. Abdominal exam reveals normal bowel sounds, no masses, no organomegaly and no aortic enlargement. Extremities are nonedematous and both femoral and pedal pulses are normal.Examination of the skin revealed no evidence of significant rashes, suspicious appearing nevi or other concerning lesions.Neurologically, the patient is awake and alert and the patient does not have any focal neurological deficit. Cranial nerves are essentially intact. Assessment and Plan Plan: Obstructive sleep apnea, currently off treatment as the patient has a broken machine. The patient was being treated with CPAP at a pressure of 10 cm of water. The patient had a ResMed S9 and her original study was done at [facility]. She needs to reestablish diagnoses and she needs to obtain a new machine for ongoing CPAP therapy regarding her [facility] sleep apnea. 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 The patient is currently weighing 196 pounds Intermittent bronchial asthma Diabetes mellitus Hyperlipidemia Hypothyroidism Plan Proceed with a home sleep study Reestablish diagnosis of obstructive sleep apnea I will offer the patient and APAP unit pressure minimum of 5 and a maximal 15 after establishing the diagnosis of sleep apnea Sleep hygiene measures are good and we'll continue maintaining the same good sleep hygiene measures and will maintain a regular sleep schedule. We'll cont inue to follow. Sleep Note - Sleep Note Sleep Note: Temperature: Pulse Rate: Respiratory Rate: Blood Pressure: SpO2: Height: Weight: BMI: Neck Circumference:
== END ==
LOC: SLEEP 15:23
PROVIDERS: ATTEND Internal Medicine Critical Care Medicine
DX: G47.33 Obstructive sleep apnea (adult) (pediatric) (principal); Z99.89 Dependence on other enabling machines and devices; J45.909 Unspecified asthma, uncomplicated; E11.9 Type 2 diabetes mellitus without complications; E78.5 Hyperlipidemia, unspecified; E03.9 Hypothyroidism, unspecified; C50.919 Malignant neoplasm of unspecified site of unspecified female breast; Z87.891 Personal history of nicotine dependence; Z88.0 Allergy status to penicillin
CPT/HCPCS: 99211

== ENCOUNTER → 2021-11-23 | Outpatient (CLI) | payer BC ==
[2021-11-23 18:14] LABS: Gliadin AB IgA, Deaminated NEGATIVE (NEGATIVE); Gliadin AB IgA, Unit 1.6 U/mL; Gliadin AB IgG, Deaminated NEGATIVE (NEGATIVE); Gliadin AB IgG, Unit 0.4 U/mL
== END | disposition home or self-care (01) ==
LOC: LABWHC1 09:34
PROVIDERS: ATTEND Internal Medicine Gastroenterology
DX: K90.0 Celiac disease (principal)
CPT/HCPCS: 36415; 83516

== ENCOUNTER → 2021-11-24 | Outpatient (CLI) | payer BC ==
--- NOTE | 2021-11-24 16:28 | P.PN ---
Subjective Progress Note Date: 11/24/21 This is a 61-year-old female patient with known history of obstructive sleep apnea. During her last evaluation, I attempted to update the patient's CPAP unit. The patient underwent a home sleep study and she was confirmed to have obstructive sleep apnea with an AHI of 12 12. Following that, the patient was given a prescription for a ResMed 11 CPAP unit, pressure minimum of 5 and a maximum of 15. The patient ultimately received a ResMed 10 units at the same level of pressure and the patient was given a airfit F 30 i fullface mask. Today she is to limit that she was unable to use the machine. The machine has been pumping a day very high level pressure and she was unable to tolerate. Based on that, she ended up quitting the treatment and she is looking for alternatives. I checked the machine. I lowered the pressure from a fixed pressure of 10 cm of water down to 6 cm of water and the patient was unable to tolerate the treatment at those various pressures. It is a possibility that the patient's machine is effective. The patient's aport score is currently at 5 and she is committed to long-term CPAP therapy. She wants to change her machine. No other new complaints otherwise for now. No recent weight gain. She is hemodynamically stable. Objective - Exam BP is 132/77 with a pulse of 80 and respiration of 14 and the temperature is 96.9 and the weight is 186 and the pulse ox is 96% on room air oxygen The patient appeared well nourished and normally developed. Vital signs as documented. Head exam is unremarkable. No scleral icterus or corneal arcus noted. Neck is without jugular venous distension, thyromegaly, or carotid bruits. Carotid upstrokes are brisk bilaterally. Lungs are clear to auscultation and percussion. Cardiac exam reveals the PMI to be normally sized and situated. Rhythm is regular. First and second heart sounds normal. No murmurs, rubs or gallops. Abdominal exam reveals normal bowel sounds, no masses, no organomegaly and no aortic enlargement. Extremities are nonedematous and both femoral and pedal pulses are normal.Examination of the skin revealed no evidence of significant rashes, suspicious appearing nevi or other concerning lesions.Neurologically, the patient is awake and alert and the patient does not have any focal neurological deficit. Cranial nerves are essentially intact. Assessment and Plan Plan: Obstructive sleep apnea, AHI of 12, unable to tolerate a ResMed 11 8 Units pressure settings of 5/15. It is possible that the machine itself is effective as the patient was able to use her older generation CPAP unit which was set at a pressure of 10 without any major difficulties. As such, it N machine will be requested. Chronic hypersomnia secondary to obstructive sleep apnea. Metastatic breast cancer Bronchial asthma mild intermittent in nature. Diabetes mellitus Hypothyroidism Hyperlipidemia Plan Ordered a ResMed 11 CPAP unit at pressures of 4/10 keeping the same mask interface The patient will come back and see me for a follow-up after obtaining her new CPAP machine for the compliance check. It is very much like to the machine that she has currently is effective and needs to be replaced. We'll continue to follow.
== END ==
LOC: SLEEP 15:32
PROVIDERS: ATTEND Internal Medicine Critical Care Medicine
DX: G47.33 Obstructive sleep apnea (adult) (pediatric) (principal); C50.919 Malignant neoplasm of unspecified site of unspecified female breast; J45.20 Mild intermittent asthma, uncomplicated; E11.9 Type 2 diabetes mellitus without complications; E03.9 Hypothyroidism, unspecified; Z79.890 Hormone replacement therapy; E78.5 Hyperlipidemia, unspecified; Z99.89 Dependence on other enabling machines and devices; Z88.0 Allergy status to penicillin

== ENCOUNTER → 2022-05-24 | Outpatient (CLI) | payer BC | END | disposition home or self-care (01) | LOC: LABWHC1 08:23 | PROVIDERS: ATTEND Nurse Practitioner Family | DX: K90.0 Celiac disease (principal) | CPT/HCPCS: 36415; 83516 ==

== ENCOUNTER → 2022-06-02 | Outpatient (CLI) | payer BC ==
--- NOTE | 2022-06-03 19:40 | MM ---
Reason for Exam: Screening (asymptomatic). Last screening mammogram was performed 12 month(s) ago. Patient History: Menarche at age 14. First Full-Term at age 21. Left ovary removed at age 61. Right ovary removed at age 61. Postmenopausal. Breast cancer, right, age 48. Previous chest radiation therapy at age 48. Previous chemotherapy at age 48. Mastectomy on the Right side. 2009, Chemotherapy. 2008, Radiation Therapy on the right side. Prior Study Comparison: 04/09/2020 Screening Mammogram, [facility]. 04/21/2020 Screening Mammogram, [facility]. 05/25/2021 Bilateral Screening Mammogram, [facility]. Tissue Density: Left: There are scattered fibroglandular densities. Findings: Analyzed By CAD. There is no suspicious group of microcalcifications or new suspicious mass in either breast. Overall Assessment: Negative, BI-RAD 1 Management: Screening Mammogram of the left breast in 1 year. 1. Patient should continue monthly self breast exams. 2. A clinical breast exam by your physician is recommended on an annual basis. 3. This exam should not preclude additional follow-up of suspicious palpable abnormalities. Electronically signed and approved by: George Kendrick M.D. Radiologist
== END | disposition home or self-care (01) ==
LOC: RADMAMWWP 12:48
PROVIDERS: ATTEND Family Medicine
DX: Z12.31 Encounter for screening mammogram for malignant neoplasm of breast (principal); Z78.0 Asymptomatic menopausal state; Z92.3 Personal history of irradiation
CPT/HCPCS: 77067

== ENCOUNTER → 2022-12-16 | Outpatient (CLI) | payer BC | END | disposition home or self-care (01) | LOC: LABWHC1 11:22 | PROVIDERS: ATTEND Internal Medicine Gastroenterology | DX: K90.0 Celiac disease (principal) | CPT/HCPCS: 36415; 83516 ==